=== PATIENT | male | born 1955 | race Caucasian/White ===

== ENCOUNTER 2018-03-05 09:18 | Day surgery (SDC) | payer MEDICARE ==
[2018-02-27 16:10] VITALS: BMI 32.8
[~2018-03-05 09:18] MED LIST: DEXAMETHASONE SOD PHOSPHATE 10 MG/ML 1 ML VIAL IV ONE; LACTATED RINGERS 1,000 ML IV SCH; LIDOCAINE 1% 20 ML VIAL (10MG/ML) FOR IV START INTRADERMA PRN; MOXIFLOXACIN HCL 0.5% DROPS 3 ML BTL OP ONE; TETRACAINE 0.5% OPHTH (PF) DROPS 4 ML BTL OP ONE; TIMOLOL 0.5% OPHTH DROPS 5 ML BTL OP ONE
[2018-03-05 10:28] VITALS: RESP 18; TEMP 98.2
[2018-03-05] MEDS: CYCLOPENTOLATE 1% OPHTH SOLN 2 ML BTL OP ONE ×3 (10:34→10:49)
[2018-03-05] MEDS: PHENYLEPHRINE 2.5% OPHTH DRP 2ML OP NR ×3 (10:37→10:52)
[2018-03-05] MEDS ORDERED: DUOVISC KIT (GREEN BOX) INTRAOCULA ONE (11:27)
[2018-03-05] MEDS ORDERED: BALANCED SALT IRRIG SOLN COMB2 15 ML IRRIG.SOLN IRRIGATION ONE (11:27)
[2018-03-05] MEDS ORDERED: LIDOCAINE 1% (PF) 10MG/ML VIAL SQ ONE (11:27)
[2018-03-05] MEDS ORDERED: EPINEPHrine (PF) 0.3 ML in BALANCED SALT IRRIG SOLN COMB2 500 ML IRRIGATION ONE (11:29)
[2018-03-05] MEDS ORDERED: fentaNYL (PF) 50 MCG/ML 2 ML AMP ONE (11:33)
[2018-03-05] MEDS ORDERED: MIDAZOLAM 2 MG/2 ML VIAL ONE (11:33)
--- NOTE | 2018-03-05 11:59 | P.OP ---
Date of Procedure: 03/05/18 Preoperative Diagnosis: NS & PSC Postoperative Diagnosis: same Procedure(s) Performed: PIOL, OS Implants: PCB00 27.00 Anesthesia: MAC Surgeon: Terry Benavidez Estimated Blood Loss (ml): 0 Pathology: none sent Condition: stable Disposition: same day Indications for Procedure: blurry vision Operative Findings: no complications
[2018-03-05 12:19] VITALS: BP 156/92; PULSE 72
--- NOTE | 2018-03-05 22:04 | OP ---
OPERATIVE REPORT DATE OF SURGERY: 03/05/18 SURGEON: Dr. Benavidez [employer]ING SCIENTIST:: PREOPERATIVE DIAGNOSES: Nuclear sclerosis. Posterior subcapsular cataract. POSTOPERATIVE DIAGNOSES: Nuclear sclerosis. Posterior subcapsular cataract. OPERATION:: Clear cornea phacoemulsification of cataract left OS eye. ESTIMATED BLOOD LOSS:: Zero. SPECIMEN TAKEN:: None. NARRATIVE:: After obtaining the appropriate consent, the patient was brought to the Operating Room where the patient was placed under cardiac monitoring and prepped and draped in the usual sterile manner. At the 5 o'clock position a 15 degree super sharp blade was used to create a paracentesis followed by instillation of 1% Xylocaine MPF 50:50 mix with BSS into the anterior chamber. This was followed by Duovisc to stabilize the anterior chamber. At the 3 o'clock position a self-sealing corneal flap incision was created using 2.8 mm rohit keratome. A cystatome was used to initiate a continuous tear capsulorrhexis which was completed with the Utrata forceps. A Binkhorst cannula was used to hydrodissect the lens nucleus followed by hydrodelineation. Phacoemulsification of the lens was performed utilizing phacochop in 41.93 seconds at 15% power. The remaining cortical material was removed using the irrigation aspiration mode followed by additional 1% Xylocaine MPF into the anterior chamber followed by viscoelastic to stabilize the capsular bag. An YAZAN PCB 0 0 27.0 diopters posterior chamber lens was placed into the capsular bag without difficulty. The remaining viscoelastic material was removed from the anterior chamber with the irrigation/aspiration. Balanced salt solution was used to normalize the intraocular pressure. The incision was checked for watertight integrity. The patient then received two drops of 0.5% timolol followed by two drops Vigamox, was lightly patched and shielded in the usual manner. There were no complications from the procedure. The patient tolerated the procedure well and was returned to recovery in good condition. MMODL / IJN: [id number] /
== END 2018-03-05 12:39 | disposition home or self-care (01) ==
LOC: OR 09:18
PROVIDERS: ATTEND Ophthalmology
DX: H25.12 Age-related nuclear cataract, left eye (principal); H25.042 Posterior subcapsular polar age-related cataract, left eye; H40.003 Preglaucoma, unspecified, bilateral; H52.03 Hypermetropia, bilateral; H52.7 Unspecified disorder of refraction; I10 Essential (primary) hypertension; M19.90 Unspecified osteoarthritis, unspecified site; Z96.642 Presence of left artificial hip joint; Z96.652 Presence of left artificial knee joint; Z79.891 Long term (current) use of opiate analgesic; Z79.899 Other long term (current) drug therapy; Z88.8 Allergy status to other drugs, medicaments and biological substances
CPT/HCPCS: 66984; C1780; J2250; J0171; J3010; J2001

== ENCOUNTER 2022-07-27 11:43 | Day surgery (SDC) | payer MEDICARE ==
[2022-07-26 09:44] VITALS: BMI 34.7
[~2022-07-27 11:43] MED LIST changes: -DEXAMETHASONE SOD PHOSPHATE 10 MG/ML 1 ML VIAL IV ONE; -LIDOCAINE 1% 20 ML VIAL (10MG/ML) FOR IV START INTRADERMA PRN; -MOXIFLOXACIN HCL 0.5% DROPS 3 ML BTL OP ONE; -TETRACAINE 0.5% OPHTH (PF) DROPS 4 ML BTL OP ONE; -TIMOLOL 0.5% OPHTH DROPS 5 ML BTL OP ONE
[2022-07-27 13:43] VITALS: TEMP 97
[2022-07-27] MEDS ORDERED: hydrALAZINE HCL 20 MG/ML 1 ML VIAL IVP ONE (13:51)
[2022-07-27] MEDS ORDERED: NA PHOS,M-B/NA PHOS,DI-BA 133 ML ENEMA RECTAL ONE ×3 (14:38→14:45)
[2022-07-27] MEDS ORDERED: PROPOFOL 10 MG/ML 20 ML VIAL IV ONE (14:58)
--- NOTE | 2022-07-27 16:00 | P.PCN ---
Date of Procedure: 07/27/22 Procedure(s) Performed: BRIEF HISTORY: Patient is a 67-year-old pleasant male scheduled for an elective colonoscopy as a part of evaluation of large rectal polyp that was noted on recent colonoscopy in June 2022. Biopsies revealed adenoma with focal high-grade dysplasia. He scheduled for a 60 flexible sigmoidoscopy for polypectomy. PROCEDURE PERFORMED: Flexible sigmoidoscopy with polypectomy and Endo Clip placement PREOPERATIVE DIAGNOSIS: Large distal rectal polyp. IV sedation per Anesthesia. PROCEDURE: After informed consent was obtained, the patient, was brought into the endoscopy unit. IV sedation was administered by Anesthesia under continuous monitoring. Digital rectal examination was normal. Initially the Olympus CF-160 flexible video colonoscope was then inserted in the rectum, gradually advanced into the sigmoid colon, appeared normal. In the distal rectum there was a semicircumferential polyp identified involving almost the dentate line measuring at least 3 cm proximal to the dentate line. Part of the polyp was removed by snare polypectomy and while the polypectomy was being performed there was brisk oozing identified. At this time I stopped performing any further polypectomy. 4 endoclips were placed and good hemostasis was achieved. Only 25% the polyp was removed. The patient tolerated the procedure well. IMPRESSION: Semicircumferential broad-based distal rectal polyp involving the dentate line status post partial polypectomy followed by brisk oozing, status post Endo Clip placement with good hemostasis. (Early . Rest of the polyp removed) RECOMMENDATIONS: Findings of this examination were discussed with the patient as well as his family. He was advised to follow with the biopsy results. Will consider for him to [facility] for EMR/ESD for complete polypectomy.
[2022-07-27 16:24] VITALS: RESP 16
[2022-07-27 16:27] VITALS: BP 165/89; PULSE 87
== END 2022-07-27 16:44 | disposition home or self-care (01) ==
LOC: ORWHC2ENDO 11:43
PROVIDERS: ATTEND Internal Medicine Gastroenterology
DX: D12.8 Benign neoplasm of rectum (principal); I10 Essential (primary) hypertension; E03.9 Hypothyroidism, unspecified; N42.9 Disorder of prostate, unspecified; Z79.899 Other long term (current) drug therapy
CPT/HCPCS: 88305; 45338; 45334; J0360; J2704

== ENCOUNTER → 2022-08-10 | Outpatient (CLI) | payer MEDICARE ==
[2022-08-10 07:43] LABS: African American GFR (CKD) >90 (>60 ml/min/1.73 sqM); Blood Urea Nitrogen 15 mg/dL (9-20); Non-African American GFR(CKD) >90 (>60 ml/min/1.73 sqM)
--- NOTE | 2022-08-10 08:12 | CT ---
EXAMINATION TYPE: CT chest w con CT DLP: 737.9 mGycm, Automated exposure control for dose reduction was used. DATE OF EXAM: 08/10/2022 8:02 AM COMPARISON: Chest radiograph from 09/06/2012 CLINICAL INDICATION:Male, 67 years old with history of C20 MALIGNANT NEOPLASM OF RECTUM, Malignant ne oplasm of rectum TECHNIQUE: Multiple axial images were obtained through the chest. Sagittal and coronal reformats were created for review. Contrast used:70 mL of Isovue 300 IV contrast. Oral contrast used: none. FINDINGS: LUNGS/ PLEURA: No evidence of focal consolidation, pneumothorax or pleural effusion. AIRWAY: Patent and unremarkable. HEART: The heart is mildly enlarged for size. MEDIASTINUM: No gross evidence of adenopathy. VASCULATURE: No aortic aneurysm. MUSCULOSKELETAL: No acute osseous abnormalities, multilevel disc degeneration changes with bridging d esiccation of the anterior longitudinal ligament consistent with diffuse idiopathic skeletal hyperost osis. SOFT TISSUES/LYMPH NODES: Unremarkable. LOWER NECK: No significant findings. UPPER ABDOMEN: Layering gallstones in the gallbladder lumen. IMPRESSION: No evidence of metastatic disease within the visualized thorax.
--- NOTE | 2022-08-11 06:42 | MR ---
EXAMINATION TYPE: MR pelvis wo/w con DATE OF EXAM: 08/10/2022 COMPARISON: None HISTORY: MALIGNANT NEOPLASM OF RECTUM CONTRAST: Standard multiplanar, multisequence MRI departmental protocol images were obtained without contrast a nd with 11 mL intravenous Gadavist gadolinium contrast. There is a 2.3 x 1.7 cm mass on the anterior and right lateral wall of the rectum. Mass shows some de layed enhancement and consistent with tumor. There appears to be some minimal enhancement at the sero dana surface of the rectum. No perirectal edema. No pathologic fluid collection in the pelvis. There i s metal artifact from left hip prosthesis. IMPRESSION: Rectal tumor on the right wall of the rectum arising from the mucosal surface. There is suggestion of a limited 4 mm invasion through the serosal surface of the rectum on the anterior wall. No free fluid in the pelvis. No sign of pelvic lymphadenopathy.
== END | disposition home or self-care (01) ==
LOC: RADCTMAIN 07:00
PROVIDERS: ATTEND Internal Medicine
DX: C20 Malignant neoplasm of rectum (principal)
CPT/HCPCS: 82565; 84520; 71260; 36415; 72197; A9585; Q9967

== ENCOUNTER → 2022-09-05 | Outpatient (CLI) | payer MEDICARE ==
--- NOTE | 2022-09-07 10:51 | MR ---
EXAMINATION TYPE: MR Prostate wo/w con DATE OF EXAM: 09/05/2022 10:34 AM COMPARISON: MR pelvis 08/02/2022. CLINICAL INDICATION:Male, 67 years old with history of R97.20 ELEVATED PROSTATE SPECIFIC ANTIGEN TECHNIQUE: Multi-planar, multi-sequence imaging of the pelvis is performed prior to and following the uncomplicated administration of bolus intravenous gadolinium. CONTRAST: 12 Gadavist Interpretive Criteria: PI-RADS v2.1 SERUM PSA: 5.15 on 07/06/2022. SURGICAL PATHOLOGY: No data available. FINDINGS: Left hip arthroplasty limits evaluation of the diffusion-weighted imaging. Prostatic dimensions: 4.2 x 2.3 x 3.7 cm. cm. "Bullet" Volume: 23.39 (PSA density=0.22 ng/mL/mL) CENTRAL GLAND (Central and Transition Zones/CZ+TZ): Somewhat homogenous low T2 signal appears to blend in with the peripheral zone predominantly along th e right posterior aspect. No restricted diffusion sequences are limited due to susceptibility artifac t. PERIPHERAL ZONE (PZ): Somewhat diffuse low T2 signal within the peripheral gland extending from apex to base loosening appr oximately from 5:00 to 8:00 evaluation diffusion weighted imaging sequences were nondiagnostic likely secondary to left hip arthroplasty magnetic susceptibility artifact. SEMINAL VESICLES (SV): Diffusely collapse or atrophic, bilaterally. PERIPROSTATIC TISSUES: Unremarkable. LYMPH NODES: Prominent right external iliac lymph nodes measuring up to 13 mm in short axis as well as nonenlarged by CT by criteria lymph nodes along the common iliac chain REMAINING PELVIS: The urinary bladder is nondistended. No abnormal free or organized intrapelvic fluid collection. Redemonstration of rectal wall thickening involving the anterior and anterior right portion of the re ctum measuring up to 4.1 cm in length by 1.5 x 2.6 cm. Distance to anal verge: 3.3 cm Distance to top of anal sphincter complex/anorectal junction: 0.0 cm Relationship to the anterior peritoneal reflection: below Craniocaudal length: 4.1 cm Circumferential location (o'clock position): 8:00 o'clock to 2:00 o'clock Morphology: Polypoid Mucinous: No OSSEOUS STRUCTURES: No suspicious osseous abnormality. There is severe degeneration changes with subchondral cystic chaudhary es involving the right hip and osteophyte formation. IMPRESSION: 1. Limited evaluation of the prostate gland secondary to left hip arthroplasty limiting the diffusio n-weighted imaging of the peripheral zone. There is suspicious signal within the prostate peripheral gland and T2-weighted imaging. Additional prominent and enlarged lymph nodes most pronounced involvin g the right external and common iliac chains. Consideration for gallium-68 PSMA PET/CT scan could be utilized given susceptibility artifact from patient's hip arthroplasty limiting the exam. 2. Redemonstration of rectal cancer, surgical consultation prior to performed.
== END | disposition home or self-care (01) ==
LOC: RADMRIMAIN 09:03
PROVIDERS: ATTEND Urology
DX: C20 Malignant neoplasm of rectum (principal); R59.0 Localized enlarged lymph nodes; R97.20 Elevated prostate specific antigen [PSA]; Z96.642 Presence of left artificial hip joint
CPT/HCPCS: 72197

== ENCOUNTER → 2023-01-15 | Outpatient (CLI) | payer MEDICARE, OTHER ==
[2023-01-16 01:31] LABS: HCT 40.5 % (39.6-50.0); MCH 34.8 pg (27.0-32.0); MCHC 34.6 g/dL (32.0-37.0); MCV 100.7 fL (80.0-97.0); Mean Platelet Volume 9.2 fL (9.5-12.2); NRBC Per 100 WBC 0 /100 WBCS (0.0-0.0); Platelet Count 338 X 10*3/uL (140-440); RBC 4.02 X 10*6/uL (4.40-5.60); RDW 14.3 % (11.5-14.5); WBC 9.23 X 10*3/uL (4.50-10.00)
[2023-01-16 03:01] LABS: African American GFR (CKD) 106.4 (60.0-200.0); BUN/Creat Ratio 9.75 Ratio (12.00-20.00); Blood Urea Nitrogen 7.8 mg/dL (9.0-27.0); Calcium 9.8 mg/dL (8.7-10.3); Non-African American GFR(CKD) 91.8 (60.0-200.0); Potassium 3.3 mmol/L (3.5-5.5)
== END | disposition home or self-care (01) ==
LOC: LABWHC1 15:37
PROVIDERS: ATTEND Internal Medicine Cardiovascular Disease
DX: I10 Essential (primary) hypertension (principal); I48.0 Paroxysmal atrial fibrillation
CPT/HCPCS: 36415; 80048; 84443; 85027

== ENCOUNTER → 2023-08-22 | Outpatient (CLI) | payer OTHER ==
--- NOTE | 2023-08-26 08:09 | PE ---
EXAMINATION TYPE: PET CT fusion skull to thigh DATE OF EXAM: 08/22/2023 COMPARISON: CT chest 08/10/2022 Prior PET/CT: None at this location HISTORY: Malignant neoplasm of the colon TECHNIQUE: Following the intravenous administration of 12.76 mCi of F-18 FDG, whole body images are performed from the skull base to the midthigh. Images are reviewed on the computer in the coronal, a xial, and sagittal planes. Reconstructed rotating images are created on independent workstation and reviewed on the computer. A localization and attenuation correction CT is performed in conjunction with the PET scan. DLP: 899.90 mGycm SCAN: Initial Blood glucose: 177 mg/dL Average Mediastinum SUV: 2.17 Average Liver SUV: 3.11 FINDINGS: NECK: No abnormal uptake THORAX: No abnormal uptake ABDOMEN: There are several focal hyperintensities within the liver compatible with metastatic lesions . Example image 128 posterior right liver is a 7.85, anterior right lobe liver SUV 7.83 and medial ri ght lobe liver SUV 8.38 there appears to be a hepatic lesion with central necrosis, image 134 SUV 7.6 7. PELVIS: No abnormal uptake OSSEOUS STRUCTURES: There is increased signal within the glenoid left scapula SUV 4.95. Image 67. Foc al uptake within the sternum image 75, SUV 5.4. Focal uptake within the left iliac crest, image 186 t here is some mild heterogenous signal within additional osseous structures given the areas discussed above suspicious for neoplasm, additional suspicious areas for neoplasm should include bilateral RIBS additional vertebral bodies within the thorax., 6.[address]: Anterior right tip liver lesion faintly visualized on the noncontrast CT. Left hip p rosthesis is present. COMPARISON: None IMPRESSION: 1. 4 large hyperintense hepatic lesions compatible with metastatic disease. 2. Osseous metastasis including left scapular glenoid, left iliac crest, and the sternum. Remaining o sseous structures are somewhat heterogenous and additional osseous metastasis including ribs and vert ebral bodies may be present.
== END | disposition home or self-care (01) ==
LOC: RADPETMAIN 14:12
PROVIDERS: ATTEND Family Medicine
DX: C18.8 Malignant neoplasm of overlapping sites of colon (principal); C79.51 Secondary malignant neoplasm of bone; K76.89 Other specified diseases of liver
CPT/HCPCS: 78815; A9552